=== PATIENT | female | born 1985 | race African-American/Black ===

== ENCOUNTER → 2017-05-16 | Outpatient (REF) | payer OTHER ==
[~2017-05-16] MED LIST: ACET50TA PO; IBUP80TA PO; PRENTAB7 PO
== END ==
LOC: M SFHCCLAY 15:35
PROVIDERS: ATTEND Family Medicine
DX: Z01.419 Encounter for gynecological examination (general) (routine) without abnormal findings (principal); Z72.51 High risk heterosexual behavior
CPT/HCPCS: 87070; 87077; 87186; 87491; 87591; G0123

== ENCOUNTER → 2017-06-07 | Outpatient (REF) | LOC: M LAB 12:34 | PROVIDERS: ATTEND Nurse Practitioner Adult Health | DX: Z02.89 Encounter for other administrative examinations (principal) ==

== ENCOUNTER → 2017-07-15 | Outpatient (REF) | payer OTHER | LOC: M LAB REF 07:24 | PROVIDERS: ATTEND Physician Assistant | DX: M54.5 Low back pain (principal) ==

== ENCOUNTER → 2017-10-24 | Outpatient (CLI) | payer OTHER | LOC: M EKG 14:17 | DX: R00.0 Tachycardia, unspecified (principal) | CPT/HCPCS: 93225 ==

== ENCOUNTER → 2018-01-03 | Outpatient (REF) | payer OTHER | LOC: M LAB REF 17:34 | DX: R30.0 Dysuria (principal) ==

== ENCOUNTER → 2018-08-13 | Outpatient (CLI) | payer OTHER | LOC: M CLY 10:42 | DX: R05 Cough (principal); R06.2 Wheezing | CPT/HCPCS: 71046 ==

== ENCOUNTER → 2018-09-17 | Outpatient (REF) | payer OTHER ==
[~2018-09-17] MED LIST changes: -ACET50TA PO; +MAPA500T2 PO
[2018-09-18 14:01] LABS: CHLAMYDIA DNA AMPLIFICATION NEGATIVE (NEGATIVE); GC DNA AMPLIFICATION NEGATIVE (NEGATIVE)
[2018-09-19 11:18] LABS: HEPATITIS A ANTIBODY IGM NEGATIVE (NEGATIVE); HEPATITIS B CORE ANTIBODY IGM NEGATIVE (NEGATIVE); HEPATITIS B SURFACE ANTIGEN NEGATIVE (NEGATIVE); HEPATITIS C VIRUS ABY INDEX 0.1 INDEX (<0.8); HIV 1&2 SCREEN CENTAUR NEGATIVE (NEGATIVE)
== END ==
LOC: M SFHCCLAY 15:22
PROVIDERS: ATTEND Nurse Practitioner Family
DX: Z01.419 Encounter for gynecological examination (general) (routine) without abnormal findings (principal)

== ENCOUNTER → 2019-09-24 | Outpatient (REF) | payer BC ==
[2019-09-24 11:26] LABS: BASO % 0.3 % (0.0-1.0); EOS # 0.1 10^3/uL (0.0-0.5); EOS % 1.6 % (0.0-3.0); HEMATOCRIT 41.2 % (36.0-47.0); HEMOGLOBIN 12.8 g/dl (12.0-15.5); LYMPH # 3.1 10^3/uL (1.5-5.0); LYMPH % 41.7 % (24.0-44.0); MEAN CORPUSCULAR HEMOGLOBIN 28.6 pg (27.0-33.0); MEAN CORPUSCULAR HGB CONC 31.1 g/dl (32.0-36.5); MONO # 0.5 10^3/uL (0.0-0.8); MONO % 6.7 % (0.0-5.0); NEUTROPHILS # 3.7 10^3/uL (1.5-8.5); NEUTROPHILS % 49.6 % (36.0-66.0); PLATELET COUNT, AUTOMATED 296 10^3/uL (150-450); RED BLOOD COUNT 4.48 10^6/uL (4.00-5.40); WHITE BLOOD COUNT 7.5 10^3/uL (4.0-10.0)
[2019-09-24 11:58] LABS: ALBUMIN 3.7 GM/DL (3.2-5.2); ALT/SGPT 21 U/L (12-78); BILIRUBIN,TOTAL 0.8 MG/DL (0.2-1.0); BLOOD UREA NITROGEN 8 MG/DL (7-18); CALCIUM LEVEL 8.8 MG/DL (8.5-10.1); CARBON DIOXIDE LEVEL 26 MEQ/L (21-32); CHLORIDE LEVEL 108 MEQ/L (98-107); CHOLESTEROL LEVEL 173 MG/DL (<200); CREATININE FOR GFR 0.78 MG/DL (0.55-1.30); FREE T4 1.08 NG/DL (0.76-1.46); GLOMERULAR FILTRATION RATE > 60.0 (>60); GLUCOSE, FASTING 81 MG/DL (70-100); HDL CHOLESTEROL 49 MG/DL (>40); LDL CHOLESTEROL 114 MG/DL (<100); NON-HDL-C 124 MG/DL; POTASSIUM SERUM 3.8 MEQ/L (3.5-5.1); SODIUM LEVEL 140 MEQ/L (136-145); TRIGLYCERIDES LEVEL 51 MG/DL (<150)
== END ==
LOC: M SFHCCLAY 08:19
PROVIDERS: ATTEND Nurse Practitioner Family
DX: Z01.419 Encounter for gynecological examination (general) (routine) without abnormal findings (principal); E66.9 Obesity, unspecified; L70.0 Acne vulgaris
CPT/HCPCS: 80053; 80061; 84439; 84443; 85025; G0123

== ENCOUNTER → 2020-05-12 | Outpatient (REF) | payer BC | LOC: M SFHCCLAY 12:03 | PROVIDERS: ATTEND Nurse Practitioner Family | DX: R07.0 Pain in throat (principal) ==

== ENCOUNTER → 2020-09-25 | Outpatient (REF) | payer BC | LOC: M SFHCCLAY 13:52 | PROVIDERS: ATTEND Physician Assistant | DX: J02.9 Acute pharyngitis, unspecified (principal) ==

== ENCOUNTER → 2020-09-28 | Outpatient (REF) | payer BC | LOC: M SFHCCLAY 09:11 | PROVIDERS: ATTEND Physician Assistant | DX: R76.11 Nonspecific reaction to tuberculin skin test without active tuberculosis (principal) ==

== ENCOUNTER → 2020-10-01 | Outpatient (REF) | payer BC | LOC: M SFHCCLAY 15:01 | PROVIDERS: ATTEND Nurse Practitioner Family | DX: Z01.84 Encounter for antibody response examination (principal) ==

== ENCOUNTER → 2022-09-07 | Outpatient (REF) | LOC: M LAB 16:07 | PROVIDERS: ATTEND Nurse Practitioner Adult Health | DX: Z00.00 Encounter for general adult medical examination without abnormal findings (principal) ==

== ENCOUNTER → 2022-11-10 | Outpatient (REF) | payer BC ==
[2022-11-10 18:42] LABS: ALBUMIN 3.5 G/DL (3.2-5.2); ALKALINE PHOSPHATASE 81 U/L (46-116); ALT/SGPT 69 U/L (7.0-40); AST/SGOT 39 U/L (<34); BILIRUBIN,TOTAL 0.4 MG/DL (0.3-1.2); BLOOD UREA NITROGEN 9 MG/DL (9-23); CALCIUM LEVEL 9.4 MG/DL (8.5-10.1); CARBON DIOXIDE LEVEL 30 MMOL/L (20-31); CHLORIDE LEVEL 101 MMOL/L (98-107); CREATININE FOR GFR 0.67 MG/DL (0.55-1.30); GLOMERULAR FILTRATION RATE > 60.0 (>60); GLUCOSE, FASTING 94 MG/DL (60-100); MAGNESIUM LEVEL 1.8 MG/DL (1.8-2.4); SODIUM LEVEL 139 MMOL/L (136-145)
== END ==
LOC: M SFHCCLAY 10:19
PROVIDERS: ATTEND Nurse Practitioner Family
DX: I10 Essential (primary) hypertension (principal)

== ENCOUNTER → 2023-07-29 | Outpatient (REF) | LOC: M EMP 16:56 | PROVIDERS: ATTEND Family Medicine | DX: Z20.822 Contact with and (suspected) exposure to COVID-19 (principal) ==

== ENCOUNTER → 2023-07-31 | Outpatient (REF) ==
[2023-07-31 11:12] LABS: RSV AMPLIFICATION NEGATIVE (NEGATIVE)
== END ==
LOC: M EMP 08:17
PROVIDERS: ATTEND Family Medicine
DX: Z11.52 Encounter for screening for COVID-19 (principal)

== ENCOUNTER → 2023-08-04 | Outpatient (REF) | LOC: M EMP 12:27 | PROVIDERS: ATTEND Family Medicine | DX: Z11.52 Encounter for screening for COVID-19 (principal) ==

== ENCOUNTER → 2024-03-13 | Outpatient (REF) | LOC: M EMP 11:26 | PROVIDERS: ATTEND Family Medicine | DX: Z11.52 Encounter for screening for COVID-19 (principal) ==

== ENCOUNTER → 2024-05-21 | Outpatient (REF) | LOC: M EMP 09:15 | PROVIDERS: ATTEND Family Medicine | DX: Z11.52 Encounter for screening for COVID-19 (principal) ==

== ENCOUNTER 2024-09-13 09:27 | Emergency (ER) | payer BC ==
[~2024-09-13] VITALS: Ht 177.8 cm; Wt 136.6 kg
[2024-09-13 09:30] VITALS: BP 182/102; TEMP 97.6; O2SAT 98
[2024-09-13] MEDS ORDERED: VENL37.598 (09:33)
[2024-09-13] MEDS ORDERED: CHLO125TA (09:33)
== END 2024-09-13 10:42 | disposition left against medical advice (07) ==
LOC: M ED 09:27
DX: Z53.21 Procedure and treatment not carried out due to patient leaving prior to being seen by health care provider (principal)

== ENCOUNTER → 2024-09-17 | Outpatient (REF) ==
[~2024-09-17] MED LIST changes: +CHLO125TA; +VENL37.598
== END ==
LOC: M EMP 09:12
PROVIDERS: ATTEND Family Medicine
DX: Z11.52 Encounter for screening for COVID-19 (principal)

== ENCOUNTER → 2024-09-17 | Outpatient (REF) | LOC: M EMP 09:08 | PROVIDERS: ATTEND Family Medicine | DX: Z11.52 Encounter for screening for COVID-19 (principal) ==

== ENCOUNTER → 2024-09-17 | Outpatient (REF) | payer BC | LOC: M SFHCCLAY 13:47 | PROVIDERS: ATTEND Physician Assistant | DX: R05.1 Acute cough (principal) ==

== ENCOUNTER → 2024-11-26 | Outpatient (REF) | LOC: M EMP 10:42 | PROVIDERS: ATTEND Family Medicine | DX: Z11.52 Encounter for screening for COVID-19 (principal) ==